=== PATIENT | female | born 1940 | race Two or more races ===

== ENCOUNTER → 2023-08-11 | Emergency (ER) | payer OTHER, MEDICAID ==
[~2023-08-11] VITALS: Ht 149.9 cm; Wt 67.3 kg
[~2023-08-11] MED LIST: APIX5TAB PO; ATOR40TA52 PO; INSLANTI SC; MIRT1TAB38 PO; MUPI2CRE17 EX
[2023-08-11 13:59] VITALS: RESP 16
[2023-08-11 14:19] VITALS: BP 133/42; PULSE 84; RESP 18; TEMP 98.7; O2SAT 95
== END | disposition left against medical advice (07) ==
LOC: ER 10:26
DX: M21.611 Bunion of right foot (principal); E11.9 Type 2 diabetes mellitus without complications; Z76.0 Encounter for issue of repeat prescription; Z79.4 Long term (current) use of insulin; Z79.899 Other long term (current) drug therapy; Z53.21 Procedure and treatment not carried out due to patient leaving prior to being seen by health care provider

== ENCOUNTER 2024-01-03 08:42 | Inpatient (IN) | payer OTHER, MEDICAID ==
[~2024-01-03] VITALS: Ht 154.9 cm; Wt 65.7 kg
[2024-01-03 13:17] VITALS: RESP 16
[2024-01-03] MEDS ORDERED: METO25TA93 PO (13:29)
[2024-01-03] MEDS ORDERED: INSLANTI SC (13:29)
[2024-01-03] MEDS ORDERED: FENO160T PO (13:29)
[2024-01-03] MEDS ORDERED: METF-371 PO (13:29)
[2024-01-03] MEDS ORDERED: SITA100T7 PO (13:29)
[2024-01-03] MEDS ORDERED: DAPA10TA3 PO (13:29)
[2024-01-03] MEDS ORDERED: ASPI-325 PO (13:29)
[2024-01-03 14:05] VITALS: BP 135/58; PULSE 90; RESP 20; TEMP 98; O2SAT 100
[2024-01-03] MEDS ORDERED: ONDANSETRON HCL 4 MG/2 ML VIAL IV PRN (14:45)
[2024-01-03] MEDS ORDERED: DOCUSATE SOD 100 MG CAP PO PRN (14:45)
[2024-01-03] MEDS ORDERED: NITROGLYCERIN 0.4 MG SL TAB SL PRN (14:45)
[2024-01-03] MEDS: SODIUM CHLORIDE 0.9% 1,000 ML IV SCH (14:45)
[2024-01-03] MEDS ORDERED: MORPHINE SULFATE INJ 2 MG/ml SYRG IV PRN ×2 (14:45)
[2024-01-03] MEDS ORDERED: DEXTROSE (50%) 50ML SYRG IV PRN (15:30)
[2024-01-03 17:00] VITALS: BP 140/75; PULSE 95; RESP 20; TEMP 98.9; O2SAT 93
[2024-01-03] MEDS: ACCU-CHEK COMFORT CURVE STRIP VI SCH (17:00)
[2024-01-03] MEDS: HYDROcodone-ACET 5/325MG TAB PO PRN (17:36)
[2024-01-03] MEDS: ENOXAPARIN SOD 80 MG/0.8ML SYRINGE SC SCH (17:52)
[2024-01-03] MEDS: InsuLIN REG 1unit/0.01ml Soln (100units/ml) SC SCH (17:55)
[2024-01-03 20:00] VITALS: BP 112/45; PULSE 95; PULSE 98; RESP 16; RESP 17; TEMP 98.6; O2SAT 99
[2024-01-03] MEDS: metroNIDAZOLE 500MG/100ML 100 ML IV SCH (23:07)
[2024-01-03] MEDS: ATORVASTATIN 20 MG TAB PO SCH (23:08)
[2024-01-04] VITALS (7 sets, daily range): BP systolic 96–131; BP diastolic 48–59; PULSE 85–126; RESP 17–20; TEMP 36.6; O2SAT 97–100
[2024-01-04 04:12] LABS: Basophils # (auto) 0 10 ^3/uL (0-0.2); Eosinophils # (auto) 0 10 ^3/uL (0-0.8); Hematocrit 39.3 % (36.0-46.0); Mean Corpuscular Volume 82.2 fL (80.0-100.0); Monocytes # (auto) 0.5 10 ^3/uL (0-1.3); Red Blood Cells 4.78 10^6/uL (4.0-5.20)
[2024-01-04 04:13] LABS: Basophils % (auto) 0.2 % (0.0-2.0); Hemoglobin 12.2 g/dL (12.2-16.2); Lymphocytes # (auto) 1.5 10 ^3/uL (0.4-5.4); Lymphocytes % (auto) 9.5 % (10.0-50.0); Mean Corpuscular Hemoglobin 25.5 pg (28.0-32.0); Mean Corpuscular Hgb Conc. 31.1 g/dL (32.0-36.0); Neutrophils # (auto) 13.9 10 ^3/uL (1.6-8.6); Neutrophils % (auto) 87.3 % (37.0-80.0); Red Cell Distribution Width 15.8 % (11.8-14.3); White Blood Cell 15.9 10^3/uL (4.4-10.8)
[2024-01-04 04:41] LABS: Alanine Aminotransferase 21 U/L (7-40); Albumin 3.9 g/dL (3.2-4.8); Alkaline Phosphatase 33 U/L (46-116); Anion Gap 10 (5-15); Aspartate Aminotransferase 31 U/L (13-40); BUN/Creatinine Ratio 9.8 (10.0-20.0); Bilirubin, Total 0.4 mg/dL (0.2-1.0); Blood Urea Nitrogen 11 mg/dL (9-23); Calcium 9.3 mg/dL (8.7-10.4); Carbon Dioxide 20 mmol/L (20-30); Chloride 106 mmol/L (98-107); Glucose 119 mg/dL (74-106); Potassium 3.7 mmol/L (3.5-5.1); Sodium 136 mmol/L (136-145)
[2024-01-04 06:22] LABS: Urine Bacteria FEW /hpf (None Seen); Urine Blood 2+ /uL (Negative); Urine Budding Yeast OCCASIONAL /hpf (None Seen); Urine Clarity Turbid (Clear); Urine Color Light-Yellow (Yellow); Urine Mucus FEW (None Seen); Urine Protein, UAD TRACE (Negative); Urine Specific Gravity 1.015 (1.001-1.035); Urine Urobilinogen Normal (Negative); Urine WBC 10 /hpf (0 - 5)
[2024-01-04] MEDS: ACETAMINOPHEN 325 MG TAB PO PRN (08:34)
[2024-01-04] MEDS: cefTRIAXone 1GM/50ML D5W 50 ML IV SCH (09:28)
[2024-01-04] MEDS: ASPirin-EC 81 mg tab PO SCH (09:28)
[2024-01-04] MEDS: METOPROLOL SUCCINATE XL 50 MG TAB PO SCH (09:29)
[2024-01-04] MEDS: PANTOPRAZOLE 40 MG TAB PO SCH (09:29)
[2024-01-04] MEDS: Fenofibrate 160 MG TABLETS PO SCH (09:45)
[2024-01-04] MEDS ORDERED: ENOXAPARIN SOD 40 MG/0.4 ML SYRINGE SC SCH (10:00)
[2024-01-04] MEDS: APIXABAN 5 MG TAB PO SCH (21:54)
[2024-01-04] MEDS: INSULIN LANTUS (GLARGINE) 1 /0.01ml (100units/ml) SC SCH (22:00)
[2024-01-05 06:00] LABS: Basophils # (auto) 0 10 ^3/uL (0-0.2); Eosinophils # (auto) 0.1 10 ^3/uL (0-0.8); Monocytes # (auto) 0.7 10 ^3/uL (0-1.3); Nucleated Red Blood Cells % 0.1 %; Red Cell Distribution Width 15.9 % (11.8-14.3); White Blood Cell 12.2 10^3/uL (4.4-10.8)
[2024-01-05 06:04] LABS: Basophils % (auto) 0.3 % (0.0-2.0); Eosinophils % (auto) 0.8 % (0.0-7.0); Hematocrit 39.4 % (36.0-46.0); Lymphocytes # (auto) 2.9 10 ^3/uL (0.4-5.4); Lymphocytes % (auto) 23.6 % (10.0-50.0); Mean Corpuscular Hemoglobin 25.4 pg (28.0-32.0); Mean Corpuscular Hgb Conc. 30.5 g/dL (32.0-36.0); Mean Corpuscular Volume 83.2 fL (80.0-100.0); Monocytes % (auto) 5.9 % (0.0-12.0); Neutrophils # (auto) 8.5 10 ^3/uL (1.6-8.6); Neutrophils % (auto) 69.4 % (37.0-80.0); Red Blood Cells 4.73 10^6/uL (4.0-5.20)
[2024-01-05 06:21] LABS: Alanine Aminotransferase 24 U/L (7-40); Albumin 3.8 g/dL (3.2-4.8); Alkaline Phosphatase 32 U/L (46-116); Anion Gap 9 (5-15); BUN/Creatinine Ratio 15.2 (10.0-20.0); Blood Urea Nitrogen 14 mg/dL (9-23); Calcium 9.4 mg/dL (8.7-10.4); Carbon Dioxide 21 mmol/L (20-30); Chloride 107 mmol/L (98-107); Glucose 130 mg/dL (74-106); Magnesium 1.9 mg/dL (1.6-2.6); Potassium 3.5 mmol/L (3.5-5.1); Sodium 137 mmol/L (136-145)
[2024-01-05 06:22] LABS: Aspartate Aminotransferase 36 U/L (13-40); Bilirubin, Total 0.3 mg/dL (0.2-1.0); Total Protein 6.7 g/dL (5.7-8.2)
[2024-01-05 08:00] VITALS: PULSE 81; PULSE 97
[2024-01-05 09:00] VITALS: BP 113/45; PULSE 103; RESP 16; TEMP 98.8; O2SAT 100
[2024-01-05] MEDS: METOPROLOL TARTRATE 25 MG TAB PO ONE (12:00)
[2024-01-05 12:44] VITALS: BP 113/52; PULSE 104; RESP 18; TEMP 98.1; O2SAT 97
[2024-01-05 17:00] VITALS: BP 117/54; PULSE 112; RESP 16; TEMP 97.3; O2SAT 100
[2024-01-05 20:00] VITALS: BP 154/65; PULSE 143; PULSE 78; RESP 19; TEMP 98.7; O2SAT 99
[2024-01-05 20:49] VITALS: BP 154/65; PULSE 78; RESP 19; TEMP 98.7; O2SAT 98
[2024-01-05] MEDS: AMIODARONE 450mg/250ml AE 250 ML IV SCH (21:44)
[2024-01-05] MEDS: METOPROLOL TARTRATE 25 MG TAB PO SCH (21:55)
[2024-01-06] VITALS (8 sets, daily range): BP systolic 108–121; BP diastolic 49–74; PULSE 51–146; RESP 16–22; TEMP 97–98.5; O2SAT 95–100
[2024-01-06] MEDS: AMIODARONE 450mg/250ml AE 250 ML IV SCH (03:49)
[2024-01-06 06:16] LABS: Basophils # (auto) 0 10 ^3/uL (0-0.2); Basophils % (auto) 0.3 % (0.0-2.0); Eosinophils # (auto) 0.1 10 ^3/uL (0-0.8); Lymphocytes # (auto) 2.1 10 ^3/uL (0.4-5.4)
[2024-01-06 06:18] LABS: Eosinophils % (auto) 1.3 % (0.0-7.0); Hemoglobin 10.9 g/dL (12.2-16.2); Lymphocytes % (auto) 22.9 % (10.0-50.0); Mean Corpuscular Hemoglobin 25.9 pg (28.0-32.0); Mean Corpuscular Hgb Conc. 31.9 g/dL (32.0-36.0); Mean Corpuscular Volume 81.1 fL (80.0-100.0); Monocytes # (auto) 0.6 10 ^3/uL (0-1.3); Neutrophils # (auto) 6.3 10 ^3/uL (1.6-8.6); Neutrophils % (auto) 68.5 % (37.0-80.0); Red Blood Cells 4.19 10^6/uL (4.0-5.20); Red Cell Distribution Width 15.3 % (11.8-14.3); White Blood Cell 9.2 10^3/uL (4.4-10.8)
[2024-01-06 06:21] LABS: Anion Gap 7 (5-15); Carbon Dioxide 25 mmol/L (20-30); Chloride 104 mmol/L (98-107); Potassium 4.3 mmol/L (3.5-5.1); Sodium 136 mmol/L (136-145)
[2024-01-06 06:27] LABS: BUN/Creatinine Ratio 28.9 (10.0-20.0); Glucose 212 mg/dL (74-106)
[2024-01-06 06:30] LABS: Blood Urea Nitrogen 24 mg/dL (9-23)
[2024-01-07] VITALS (8 sets, daily range): BP systolic 110–124; BP diastolic 46–94; PULSE 76–117; RESP 18–20; TEMP 97.8–98.5; O2SAT 96–100
[2024-01-07] MEDS: METOPROLOL TARTRATE 25 MG TAB PO SCH (22:04)
[2024-01-08] VITALS (9 sets, daily range): BP systolic 112–175; BP diastolic 41–79; PULSE 84–108; RESP 16–20; TEMP 97.5–98.3; O2SAT 94–100
[2024-01-09] VITALS (7 sets, daily range): BP systolic 113–138; BP diastolic 36–65; PULSE 80–110; RESP 16–22; TEMP 98–98.8; O2SAT 96–100
[2024-01-10] VITALS (7 sets, daily range): BP systolic 113–147; BP diastolic 25–81; PULSE 86–106; RESP 16–21; TEMP 97.7–98.7; O2SAT 100
[2024-01-11 01:00] VITALS: BP 134/56; PULSE 85; RESP 20; TEMP 98.5; O2SAT 100
[2024-01-11 05:00] VITALS: BP 133/60; PULSE 85; RESP 20; TEMP 98.2; O2SAT 96
[2024-01-11 08:00] VITALS: PULSE 110
[2024-01-11 09:00] VITALS: BP 148/89; PULSE 96; RESP 18; TEMP 98.1; O2SAT 97
[2024-01-11 12:14] VITALS: BP 140/89; PULSE 96; TEMP 36.7
[2024-01-11 13:00] VITALS: BP 135/68; PULSE 95; RESP 18; TEMP 98.1; O2SAT 100
== END 2024-01-11 13:45 | disposition home or self-care (01) | DRG 871 ==
LOC: TELE-WESTW 13:02 → UNDOADMIN 13:02 → TELE-WESTW 15:18
PROVIDERS: ADMIT Internal Medicine Geriatric Medicine; ATTEND Internal Medicine Geriatric Medicine
DX: A41.9 Sepsis, unspecified organism (principal); N17.0 Acute kidney failure with tubular necrosis; L03.114 Cellulitis of left upper limb; N39.0 Urinary tract infection, site not specified; I82.622 Acute embolism and thrombosis of deep veins of left upper extremity; E11.9 Type 2 diabetes mellitus without complications; E78.5 Hyperlipidemia, unspecified; I10 Essential (primary) hypertension; R26.81 Unsteadiness on feet; I48.0 Paroxysmal atrial fibrillation; E66.9 Obesity, unspecified; Z90.12 Acquired absence of left breast and nipple; Z79.899 Other long term (current) drug therapy; Z79.01 Long term (current) use of anticoagulants; Z85.3 Personal history of malignant neoplasm of breast; Z79.4 Long term (current) use of insulin; Z68.27 Body mass index [BMI] 27.0-27.9, adult; R53.1 Weakness
CPT/HCPCS: 36415; 71045; 74176; 80048; 80053; 81001; 82270; 82962; 83735; 85025; 85048; 87040; 87045; 87081; 87086; 87177; 87427; 87493; 93005; 93306; 93971; 97110; 97116; 97163; 97530; G0378; J1815; J3490